=== PATIENT | female | born 1960 | race Caucasian/White ===

== ENCOUNTER 2018-09-29 09:24 | Emergency (ER) | payer MEDICARE, OTHER ==
[~2018-09-29] VITALS: Ht 165.1 cm; Wt 78.0 kg
[~2018-09-29 09:24] MED LIST: ALBU90OI; ALBUIS; AMOX500; AMOX500 PO; BENZ100A PO; CARB200 PO; CHOLP; DEXT10ER; DEXT10ER PO; DIAZ5 PO; ESZO2 PO; ESZO3 PO; FAMO20; FAMO20 PO; FLUD.1; FLUSAL2505; FURO20 PO; GABA300; GABA300 PO; GROWTH HORMONE; HYDACE5; HYDACE5 PO; HYDCOR10; HYDHCL10 PO; HYDPAM25 PO; LACT10SY PO; LANS30EC; LANS30EC PO; MAGCIT300 PO; MEBE100 PO; MEDR150I; MEDROXYPROGESTERONE; METPHE10; MIDO2.5; MONT5TCH; MUPI2TC TOP; MUPI2TO TOP; Omeprazole20 M1; PERM5TC TOP; POTCHL10ER PO; PRED20; RXAMOX500 PO; RXLORA1 PO; SILSUL1TC TOP; SULTRIDS PO; TRAM50; TRAM50 PO; TRIAOIA; [UNRECOGNIZED DRUG - CODE]; [UNRECOGNIZED DRUG - OTHER]; [UNRECOGNIZED DRUG - REMARK]; [UNRECOGNIZED DRUG - REMARK]
[2018-09-29 10:24] LABS: BASOPHILS ABSOLUTE AUTO 0.02 K/mm3 (0.00-0.23); BASOPHILS PERCENT AUTO 0 % (0-2); EOSINOPHILS ABSOLUTE AUTO 0.09 K/mm3 (0.00-0.68); EOSINOPHILS PERCENT AUTO 1 % (0-6); Hematocrit 39.5 % (33.0-51.0); Hemoglobin 12.8 g/dL (11.5-16.0); IMMATURE GRAN ABSOLUTE AUTO 0.03 K/mm3 (0.00-0.10); IMMATURE GRAN PERCENT AUTO 0 % (0-1); LYMPHOCYTES ABSOLUTE AUTO 1.72 K/mm3 (0.84-5.20); LYMPHOCYTES PERCENT AUTO 17 % (21-46); MONOCYTES ABSOLUTE AUTO 0.65 K/mm3 (0.16-1.47); MONOCYTES PERCENT AUTO 6 % (4-13); Mean Corpuscular HGB 29.5 pg (26.0-34.0); Mean Corpuscular HGB Conc 32.4 g/dL (31.5-36.5); Mean Corpuscular Volume 91 fL (80-100); Mean Platelet Volume 11.5 fL (9.1-12.4); NEUTROPHILS ABSOLUTE AUTO 7.67 K/mm3 (1.96-9.15); NEUTROPHILS PERCENT AUTO 75 % (41-73); Platelet Count 244 K/mm3 (150-400); RDW Coefficient Variation 14.1 % (11.7-14.2); RDW Standard Deviation 47.5 fL (35.1-46.3); Red Blood Cell Count 4.34 M/mm3 (3.80-5.20); White Blood Cell Count 10.18 K/mm3 (4.00-11.30)
[2018-09-29 10:45] LABS: Alanine Aminotransfer (ALT/SGP 45 U/L (12-78); Albumin, Blood 3.4 g/dL (3.4-5.0); Albumin/Globulin Ratio 0.8 (0.8-1.8); Alk Phos 179 U/L (50-136); Anion Gap 6 mmol/L (6-16); Aspartate Aminotrans (AST/SGOT 27 U/L (12-37); Bilirubin, Total 0.3 mg/dL (0.1-1.0); Blood Urea Nitrogen 9 mg/dL (8-24); Bun/Creatinine Ratio 9.4 (12.0-20.0); CO2, Blood 27 mmol/L (21-32); Calcium, Blood 9.2 mg/dL (8.5-10.1); Chloride, Blood 105 mmol/L (98-108); Creatinine, Blood 0.96 mg/dL (0.40-1.00); Globulin, Blood 4.2 g/dL (2.2-4.0); Glomerular Filtration Rate >60 (60-); Glucose, Blood 95 mg/dL (70-99); Potassium, Blood 3.6 mmol/L (3.5-5.5); Sodium, Blood 138 mmol/L (136-145); Total Protein, Blood 7.6 g/dL (6.4-8.2); Troponin I <0.015 ng/mL (0.000-0.040)
[2018-09-29] MEDS ORDERED: ALBU90OI61 INH (12:13)
[2018-09-29] MEDS ORDERED: ONDA4ODT MM (12:54)
[2018-09-29] MEDS ORDERED: Norco 10-325 T1 EACH PO (12:54)
== END 2018-09-29 13:39 | disposition home or self-care (01) ==
LOC: ER 09:24
PROVIDERS: Emergency Medicine
DX: R10.11 Right upper quadrant pain (principal); E11.9 Type 2 diabetes mellitus without complications; J45.909 Unspecified asthma, uncomplicated; Z88.5 Allergy status to narcotic agent; Z79.899 Other long term (current) drug therapy
CPT/HCPCS: 36415; 76705; 80053; 83690; 84484; 85025; 93005; 93010; 96361; 96374; 96375; 99284-25; J1170; J2405; J7030

== ENCOUNTER → 2020-08-13 | Outpatient (CLI) | payer MEDICARE, OTHER ==
[~2020-08-13] MED LIST changes: +ALBU90OI61 INH; +CEPHALEXIN500 M1 PO; +Norco 10-325 T1 EACH PO; +ONDA4ODT MM
== END | disposition home or self-care (01) ==
LOC: LAB SHORT 15:55 → LAB 15:55
PROVIDERS: Obstetrics & Gynecology
DX: Z12.4 Encounter for screening for malignant neoplasm of cervix (principal)
CPT/HCPCS: G0123

== ENCOUNTER 2020-08-21 11:01 | Emergency (ER) | payer MEDICARE, OTHER ==
[~2020-08-21] VITALS: Ht 165.1 cm; Wt 78.0 kg
[~2020-08-21 11:01] MED LIST changes: -CEPHALEXIN500 M1 PO
[2020-08-21] MEDS ORDERED: CEPHALEXIN500 M1 PO (12:48)
[2020-08-21] MEDS ORDERED: SULTRIDS PO (12:48)
== END 2020-08-21 12:58 | disposition home or self-care (01) ==
LOC: ER 11:01
DX: S61.002A Unspecified open wound of left thumb without damage to nail, initial encounter (principal); E11.9 Type 2 diabetes mellitus without complications; Z88.5 Allergy status to narcotic agent; Z79.899 Other long term (current) drug therapy; W45.8XXA Other foreign body or object entering through skin, initial encounter; Y93.89 Activity, other specified
CPT/HCPCS: 11042; 73140; 90471; 90714; 99283-25; A9270

== ENCOUNTER 2020-10-31 15:00 | Emergency (ER) | payer MEDICARE, OTHER ==
[~2020-10-31 15:00] MED LIST changes: +CEPHALEXIN500 M1 PO
== END 2020-10-31 16:40 | disposition home or self-care (01) ==
LOC: ER 15:00
DX: U07.1 COVID-19 (principal); E11.9 Type 2 diabetes mellitus without complications; J45.909 Unspecified asthma, uncomplicated; Z88.5 Allergy status to narcotic agent; Z79.899 Other long term (current) drug therapy
CPT/HCPCS: 96374; 99282-25; J1885; M0243; Q0243

== ENCOUNTER 2024-04-06 18:23 | Emergency (ER) | payer MEDICARE, OTHER ==
[~2024-04-06] VITALS: Ht 165.1 cm; Wt 77.1 kg
[~2024-04-06 18:23] MED LIST changes: +AMPDEX10CR PO; +Aspir 8181 MG PO; +DILT60 PO; +DOXY100 PO; +OMEP20ER PO; +OXYB5 PO; +OXYC5 PO; +PRED20 PO; +Zanaflex2 M1 PO
[2024-04-06 18:55] LABS: BASOPHILS ABSOLUTE AUTO 0.02 K/mm3 (0.00-0.23); BASOPHILS PERCENT AUTO 0 % (0-2); EOSINOPHILS ABSOLUTE AUTO 0.05 K/mm3 (0.00-0.68); EOSINOPHILS PERCENT AUTO 1 % (0-6); Hematocrit 40.9 % (33.0-51.0); Hemoglobin 13.4 g/dL (11.5-16.0); IMMATURE GRAN ABSOLUTE AUTO 0.05 K/mm3 (0.00-0.10); IMMATURE GRAN PERCENT AUTO 1 % (0-1); LYMPHOCYTES ABSOLUTE AUTO 1.72 K/mm3 (0.84-5.20); LYMPHOCYTES PERCENT AUTO 16 % (21-46); MONOCYTES ABSOLUTE AUTO 0.52 K/mm3 (0.16-1.47); MONOCYTES PERCENT AUTO 5 % (4-13); Mean Corpuscular HGB 31.1 pg (26.0-34.0); Mean Corpuscular HGB Conc 32.8 g/dL (31.5-36.5); Mean Corpuscular Volume 95 fL (80-100); Mean Platelet Volume 10.6 fL (9.1-12.4); NEUTROPHILS ABSOLUTE AUTO 8.39 K/mm3 (1.96-9.15); NEUTROPHILS PERCENT AUTO 78 % (41-73); Platelet Count 212 K/mm3 (150-400); RDW Coefficient Variation 14.3 % (11.7-14.2); RDW Standard Deviation 50.4 fL (35.1-46.3); Red Blood Cell Count 4.31 M/mm3 (3.80-5.20); White Blood Cell Count 10.75 K/mm3 (4.00-11.30)
[2024-04-06 19:14] LABS: Albumin/Globulin Ratio 0.9 (0.8-1.8); Bilirubin, Total 0.3 mg/dL (0.1-1.0); Bun/Creatinine Ratio 21.1 (12.0-20.0); Calcium, Blood 8.6 mg/dL (8.5-10.1); Creatinine, Blood 1.14 mg/dL (0.40-1.00); Globulin, Blood 3.3 g/dL (2.2-4.0); Potassium, Blood 3.8 mmol/L (3.5-5.5); Total Protein, Blood 6.3 g/dL (6.4-8.2)
[2024-04-06 21:30] VITALS: BP 122/79
== END 2024-04-06 21:47 | disposition home or self-care (01) ==
LOC: ER 18:23
PROVIDERS: Physician Assistant
DX: R07.2 Precordial pain (principal); E11.9 Type 2 diabetes mellitus without complications; J45.909 Unspecified asthma, uncomplicated; Z79.899 Other long term (current) drug therapy; Z79.82 Long term (current) use of aspirin
CPT/HCPCS: 71045; 80053; 83690; 84484; 85025; 93005; 93010; 99285-25